=== PATIENT | female | born 1990 | race Caucasian/White ===

== ENCOUNTER → 2017-01-03 | Outpatient (CLI) | payer OTHER ==
[~2017-01-03] MED LIST: GADAVIST IV PRN
--- NOTE | 2017-01-03 19:49 | DIAGNOSTIC IMAGING REPORT ---
MRI OF THE BRAIN WITHOUT AND WITH IV CONTRAST CLINICAL HISTORY: G43.009 Common migraine without aura worsening headaches, vision COMPARISON STUDY: No previous studies for comparison. TECHNIQUE: Utilizing a 1.5 Gabriela magnet and dedicated coil, multiplanar, multiecho imaging of the brain was performed pre and postcontrast administration. IV administration of 8.5 mL of Gadavist contrast was uneventful. FINDINGS: Normal signal characteristics of the cerebellar as well as cerebral hemispheres. Ventricular system is midline. Structures of the sella and parasellar region are within normal limits. No evidence for abnormal postcontrast enhancement. IMPRESSION: Normal study Electronically signed by: Renan Miranda M.D. 01/03/2017 7:48 PM Dictated Date/Time: 01/03/2017 7:45 PM
== END | disposition home or self-care (01) ==
LOC: C.MRI 18:54
PROVIDERS: ATTEND Physician Assistant
DX: G43.009 Migraine without aura, not intractable, without status migrainosus (principal)